=== PATIENT | female | born 1940 | race Caucasian/White ===

== ENCOUNTER 2023-08-24 21:56 | Observation (INO) | payer OTHER ==
[2023-08-24 22:07] VITALS: BMI 40.8
[2023-08-24] MEDS ORDERED: ACETAMINOPHEN INJECTION 100 ML IVPB ONE (23:12)
[2023-08-24 23:36] LABS: BASO % 0.4 % (0-2.0); EOS % 1.4 % (0-4.5); HEMATOCRIT 44.9 % (32.4-45.2); HEMOGLOBIN 15.3 GM/dL (10.7-15.3); LYMPH % 21.3 % (8-40); MCH 28.5 pg (25.7-33.7); MEAN CELL VOLUME 83.9 fl (80-96); MEAN PLT VOLUME 8.7 fl (7.5-11.1); MONO % 6.5 % (3.8-10.2); NEUT % 70.4 % (42.8-82.8); PLATELET COUNT 201 10^3/uL (134-434); RBC 5.35 M/mm3 (3.60-5.2); RDW 14.9 % (11.6-15.6); WHITE BLOOD COUNT 7.4 K/mm3 (4.0-10.0)
[2023-08-24] MEDS: ACETAMINOPHEN 1000 MG/100 ML BAG IVPB ONE (23:38)
[2023-08-24 23:55] LABS: INR 1.1 (0.83-1.09); PROTHROMBIN TIME (PATIENT) 12.4 SEC (9.7-13.0)
[2023-08-24 23:58] LABS: ACTIVATED PTT 30.4 SECONDS (25.2-36.5)
[2023-08-25 00:02] LABS: CHLORIDE 108 mmol/L (98-107); SODIUM 136 mmol/L (136-145)
[2023-08-25 00:05] LABS: ALBUMIN 3.2 g/dl (3.4-5.0); BLOOD UREA NITROGEN 20.1 mg/dL (7-18); CALCIUM 8.8 mg/dL (8.5-10.1); CO2 23 mmol/L (21-32)
[2023-08-25 00:06] LABS: GLUCOSE,RANDOM 156 mg/dL (74-106)
[2023-08-25 00:09] LABS: CREATININE 0.8 mg/dL (0.55-1.3); SGOT/AST 33 U/L (15-37); SGPT/ALT 21 U/L (13-61)
[2023-08-25 00:10] LABS: BILIRUBIN,TOTAL 0.5 mg/dL (0.2-1); TOT PROT 7.1 g/dl (6.4-8.2)
[2023-08-25 00:11] LABS: ALK PHOS 69 U/L (45-117)
[2023-08-25 00:13] LABS: N-TERMINAL BNP 641.9 pg/ml (5-450)
[2023-08-25 00:26] LABS: ANION GAP 5 mmol/L (4-13); POTASSIUM 6.5 mmol/L (3.5-5.1)
[2023-08-25] MEDS ORDERED: FUROSEMIDE 40 MG/4 ML INJECTABLE VIAL ONE (00:28)
[2023-08-25] MEDS: FUROSEMIDE 40 MG/4 ML INJECTABLE VIAL IVPUSH ONE (00:33)
[2023-08-25] MEDS ORDERED: ASPIRIN 81 MG CHEWABLE TABLETS ONE (00:47)
[2023-08-25] MEDS: ASPIRIN 81 MG CHEWABLE TABLETS PO ONE (00:49)
[2023-08-25 02:17] LABS: BLOOD UREA NITROGEN 20.3 mg/dL (7-18); CALCIUM 9.3 mg/dL (8.5-10.1); CREATININE 0.8 mg/dL (0.55-1.3); POTASSIUM 4.1 mmol/L (3.5-5.1)
[2023-08-25] MEDS: ACETAMINOPHEN 1000 MG/100 ML BAG IVPB ONE (02:47)
[2023-08-25] MEDS ORDERED: ACETAMINOPHEN 325 MG TABLET (FP) PO PRN (07:32)
[2023-08-25] MEDS ORDERED: hydrALAZINE HCL 10 MG TABLET PO PRN (07:39)
[2023-08-25 09:04] LABS: HEMATOCRIT 43.5 % (32.4-45.2); HEMOGLOBIN 14.9 GM/dL (10.7-15.3); MCH 28.5 pg (25.7-33.7); MCHC 34.1 g/dl (32.0-36.0); MEAN CELL VOLUME 83.5 fl (80-96); PLATELET COUNT 202 10^3/uL (134-434); RBC 5.21 M/mm3 (3.60-5.2); RDW 15.2 % (11.6-15.6); WHITE BLOOD COUNT 7.4 K/mm3 (4.0-10.0)
[2023-08-25 09:25] LABS: POTASSIUM 3.9 mmol/L (3.5-5.1)
[2023-08-25 09:33] LABS: ALBUMIN 3.4 g/dl (3.4-5.0); BLOOD UREA NITROGEN 20.5 mg/dL (7-18); CALCIUM 8.9 mg/dL (8.5-10.1); MAGNESIUM 2.2 mg/dL (1.8-2.4)
[2023-08-25 09:36] LABS: CREATININE 0.8 mg/dL (0.55-1.3)
[2023-08-25 09:38] LABS: BILIRUBIN,TOTAL 1.4 mg/dL (0.2-1); TOT PROT 6.8 g/dl (6.4-8.2)
[2023-08-25 09:40] LABS: CHOLESTEROL 215 mg/dL (50-200)
[2023-08-25 09:42] LABS: LDL CHOLESTEROL (ONLY SJRH) 152 mg/dL (5-100)
[2023-08-25 09:44] LABS: HDL CHOLESTEROL 52 mg/dL (40-60)
[2023-08-25] MEDS: FUROSEMIDE 20 MG TABLET (FP) PO SCH (10:41)
[2023-08-25] MEDS: ENOXAPARIN NA (PORCINE) 40 MG/0.4 ML DISP.SYRIN SQ SCH (10:41)
[2023-08-25] MEDS ORDERED: PATIENT'S OWN MEDICATION (NON-FORMULARY) (Benazepril Hcl [Benazepril Hcl] 20 MG) PO SCH (16:30)
[2023-08-25] MEDS ORDERED: PATIENT'S OWN MEDICATION (NON-FORMULARY) (Benazepril Hcl [Benazepril Hcl] 20 MG Tablet) PO SCH (16:30)
[2023-08-25] MEDS: ASPIRIN COATED 81 MG TABLET.EC PO SCH (17:18)
[2023-08-25] MEDS ORDERED: HEPARIN NA (PORCINE) 5,000 UNITS/ML 1ML VIAL IVPUSH PRN ×2 (18:39)
[2023-08-25] MEDS: TICAGRELOR 90 MG TABLET PO ONE (19:04)
[2023-08-25] MEDS: HEPARIN INFUSION - 25,000 UNITS/500 ML INFUS.BAG IVPB SCH (19:05)
[2023-08-25] MEDS: ATORVASTATIN CA 80 MG TABLET (FP) PO SCH (21:57)
[2023-08-25] MEDS ORDERED: LISINOPRIL 20 MG TABLET PO SCH (22:00)
[2023-08-25 22:33] VITALS: RESP 18
[2023-08-25 22:54] VITALS: BP 186/82; PULSE 62; TEMP 97.9
[2023-08-26] MEDS ORDERED: TICAGRELOR 90 MG TABLET PO SCH (09:00)
[2023-08-26] MEDS ORDERED: ISOSORBIDE MONONITRATE 30 MG TAB.SR.24H (FP) PO SCH (10:00)
== END 2023-08-25 23:25 | disposition short-term general hospital (02) ==
LOC: JER 21:56 → JERBED 08-25 01:08 → J4S 08-25 05:03
PROVIDERS: ADMIT Internal Medicine; ATTEND Nurse Practitioner
PROC: 3E033NZ Introduction of Analgesics, Hypnotics, Sedatives into Peripheral Vein, Percutaneous Approach (ICD-10-PCS; principal; 2023-08-25)
PROC: 3E023GC Introduction of Other Therapeutic Substance into Muscle, Percutaneous Approach (ICD-10-PCS; 2023-08-25)
PROC: 3E033GC Introduction of Other Therapeutic Substance into Peripheral Vein, Percutaneous Approach (ICD-10-PCS; 2023-08-25)
DX: I21.4 Non-ST elevation (NSTEMI) myocardial infarction (principal); R06.00 Dyspnea, unspecified; I10 Essential (primary) hypertension; R07.9 Chest pain, unspecified; E66.9 Obesity, unspecified; R00.2 Palpitations; E78.5 Hyperlipidemia, unspecified; Z88.8 Allergy status to other drugs, medicaments and biological substances
CPT/HCPCS: 36415; 71045-TC-FY; 71275-TC; 80048; 80053; 80061; 83735; 83880; 84443; 84484; 85025; 85027; 85610; 85730; 87635; 93005; 93010; 96365; 96372; 96375; 99285-25; G0378; J0131; J1644; Q9967